=== PATIENT | female | born 1970 | race American Indian/Alaskan Native ===

== ENCOUNTER 2016-06-04 11:17 | Outpatient (CLI) | payer OTHER ==
--- NOTE | 2016-06-04 12:49 | Cat Scan Report ---
CT FACIAL BONES WITHOUT CONTRAST: HISTORY: Orbital cellulitis, swelling, pain. TECHNIQUE: Helical CT images with sagittal and coronal CT reformations. FINDINGS: There is mild nonspecific soft tissue swelling of the left eyelid. The retro-orbital structures are normal bilaterally. No post septal cellulitis is appreciated. The facial bones are intact. No evidence for fracture or bony destruction. There is severe mucosal thickening throughout the left maxillary sinus and partial opacification left ethmoid air cells. The remainder of the sinuses are clear. IMPRESSION: Left pre-septal orbital cellulitis. Left maxillary and ethmoid sinus disease, likely chronic. These findings were discussed with Dr. Alvarado at 1241 hrs.
== END 2016-06-04 11:18 | disposition home or self-care (01) ==
LOC: CT 11:17
PROVIDERS: ATTEND General Practice
DX: H05.012 Cellulitis of left orbit (principal); J32.2 Chronic ethmoidal sinusitis; J32.0 Chronic maxillary sinusitis
CPT/HCPCS: 70486

== ENCOUNTER 2016-06-11 08:39 | Outpatient (CLI) | payer OTHER ==
--- NOTE | 2016-06-11 15:12 | Mammography Report ---
BILATERAL DIGITAL SCREENING MAMMOGRAM with CAD: 06/11/16 08:39:00 CLINICAL: Routine screening. COMPARISON:02/08/15 FINDINGS: There are bilateral scattered fibroglandular densities. No mass, architectural distortion or suspicious calcifications. IMPRESSION: No mammographic evidence of malignancy. BI-RADS CATEGORY: 1 - - Negative RECOMMENDATION: Routine mammographic screening in one year. COMMENT: Patient follow-up letters are generated by our [employer] application.
== END 2016-06-11 08:40 | disposition home or self-care (01) ==
LOC: SPVWC 08:39
PROVIDERS: ATTEND General Practice
DX: Z12.31 Encounter for screening mammogram for malignant neoplasm of breast (principal)
CPT/HCPCS: 77067; G0202

== ENCOUNTER 2019-10-20 06:20 | Emergency (ER) | payer SELFPAY ==
[2019-10-20 06:33] VITALS: BP 152/91
--- NOTE | 2019-10-20 08:01 | Emergency Department Report ---
ED ENT HPI - General Chief complaint: Earache Stated complaint: EAR PAIN Time Seen by Provider: 10/20/19 07:35 Source: patient Mode of arrival: Ambulatory Limitations: No Limitations - History of Present Illness Initial comments: 48-year-old [place] female presents emerged department complaining of chronic recurrent ear infections and states that she is been having pain draining some sensation of swelling to her right ear for the last 1 week. Reports no fever, chills, sweats no tinnitus no nasal congestion no odynophagia or dysphasia no trauma. Status post emergency department today since her symptoms did not go away after 1 week. MD complaint: ear pain -: week(s) (1) Quality: aching, sharp Consistency: constant Improves with: none Worsens with: none Associated Symptoms: discharge from ear. denies: gum swelling, toothache, pain with swallowing, sore throat, tinnitus - Related Data Previous Rx's Medication Instructions Recorded Last Taken Type Amoxicillin [Trimox CAP] 500 mg PO BID #20 capsule 11/18/18 Unknown Rx Cetirizine HCl [ZyrTEC] 10 mg PO DAILY #30 capsule 11/18/18 Unknown Rx Fluticasone [Flonase] 1 spray NS QDAY #1 bottle 11/18/18 Unknown Rx Polymyxin B Sulf/Trimethoprim 2 drop OD Q4H #1 each 11/18/18 Unknown Rx [Polytrim Eye Drops] predniSONE [Deltasone] 20 mg PO DAILY #5 tablet 11/18/18 Unknown Rx Ciprofloxacin HCl/Dexameth 1 drop AD BID #7.5 ml 10/20/19 Unknown Rx [Ciprodex Otic Suspension] Allergies Allergy/AdvReac Type Severity Reaction Status Date / Time No Known Allergies Allergy Verified 01/03/14 09:13 ED Dental HPI - General Chief complaint: Earache Stated complaint: EAR PAIN Time Seen by Provider: 10/20/19 07:35 Source: patient Mode of arrival: Ambulatory Limitations: No Limitations - Related Data Previous Rx's Medication Instructions Recorded Last Taken Type Amoxicillin [Trimox CAP] 500 mg PO BID #20 capsule 11/18/18 Unknown Rx Cetirizine HCl [ZyrTEC] 10 mg PO DAILY #30 capsule 11/18/18 Unknown Rx Fluticasone [Flonase] 1 spray NS QDAY #1 bottle 11/18/18 Unknown Rx Polymyxin B Sulf/Trimethoprim 2 drop OD Q4H #1 each 11/18/18 Unknown Rx [Polytrim Eye Drops] predniSONE [Deltasone] 20 mg PO DAILY #5 tablet 11/18/18 Unknown Rx Ciprofloxacin HCl/Dexameth 1 drop AD BID #7.5 ml 10/20/19 Unknown Rx [Ciprodex Otic Suspension] Allergies Allergy/AdvReac Type Severity Reaction Status Date / Time No Known Allergies Allergy Verified 01/03/14 09:13 ED Review of Systems ROS: Stated complaint: EAR PAIN Other details as noted in HPI Comment: All other systems reviewed and negative ED Past Medical Hx - Past Medical History Previous Medical History?: Yes Hx Hypertension: Yes - Surgical History Additional Surgical History: Tubal Ligation - Social History Smoking Status: Never Smoker Substance Use Type: Alcohol - Medications Home Medications: Home Medications Medication Instructions Recorded Confirmed Last Taken Type Amoxicillin [Trimox CAP] 500 mg PO BID #20 capsule 11/18/18 Unknown Rx Cetirizine HCl [ZyrTEC] 10 mg PO DAILY #30 capsule 11/18/18 Unknown Rx Fluticasone [Flonase] 1 spray NS QDAY #1 bottle 11/18/18 Unknown Rx Polymyxin B Sulf/Trimethoprim 2 drop OD Q4H #1 each 11/18/18 Unknown Rx [Polytrim Eye Drops] predniSONE [Deltasone] 20 mg PO DAILY #5 tablet 11/18/18 Unknown Rx Ciprofloxacin HCl/Dexameth 1 drop AD BID #7.5 ml 10/20/19 Unknown Rx [Ciprodex Otic Suspension] ED Physical Exam - General Limitations: No Limitations General appearance: alert, in no apparent distress - Head Head exam: Present: atraumatic, normocephalic - Eye Eye exam: Present: normal appearance - ENT ENT exam: Present: mucous membranes moist, other (Tragal tenderness to the right ear. There is minimal swelling there is erythema and discharge and noted to the right ear canal) - Neck Neck exam: Present: normal inspection, full ROM - Respiratory Respiratory exam: Present: normal lung sounds bilaterally, chest wall tenderness. Absent: respiratory distress, wheezes, rales, decreased breath sounds, prolonged expiratory - Cardiovascular Cardiovascular Exam: Present: regular rate, normal rhythm. Absent: systolic murmur, diastolic murmur, rubs, gallop - GI/Abdominal GI/Abdominal exam: Present: soft, normal bowel sounds - Extremities Exam Extremities exam: Present: normal inspection - Back Exam Back exam: Present: normal inspection - Neurological Exam Neurological exam: Present: alert, oriented X3 - Psychiatric Psychiatric exam: Present: normal affect, normal mood - Skin Skin exam: Present: warm, dry, intact, normal color. Absent: rash ED Course Vital Signs 10/20/19 06:32 Temperature 98.7 F Pulse Rate 88 Respiratory 18 Rate Blood Pressure 152/91 [Left] O2 Sat by Pulse 96 Oximetry ED Medical Decision Making - Medical Decision Making 48-year-old female with chronic recurrent infections appears to have an infection that is present today. Stable vital signs discussed with patient the need to follow-up with primary care/ENT for definitive management of this issue. No emergent medical condition is present but treatment is needed Critical care attestation.: If time is entered above; I have spent that time in minutes in the direct care of this critically ill patient, excluding procedure time. ED Disposition Clinical Impression: Otitis externa Disposition: DC-01 TO HOME OR SELFCARE Is pt being admited?: No Does the pt Need Aspirin: No Condition: Stable Instructions: Otitis Externa (ED) Prescriptions: Ciprofloxacin HCl/Dexameth [Ciprodex Otic Suspension] 1 drop AD BID #7.5 ml Referrals: [facility] [Provider Group] - 3-5 Days
== END 2019-10-20 08:15 | disposition home or self-care (01) ==
LOC: ED 06:20
DX: H60.91 Unspecified otitis externa, right ear (principal); I10 Essential (primary) hypertension; Z79.899 Other long term (current) drug therapy; Z98.51 Tubal ligation status
CPT/HCPCS: 99282